=== PATIENT | female | born 1960 | race Caucasian/White ===

== ENCOUNTER 2017-03-27 10:01 | Emergency (ER) | payer SELFPAY ==
[2017-03-27 10:51] LABS: APPEARANCE HAZY (CLEAR); BILIRUBIN NEGATIVE (NEGATIVE); COLOR YELLOW (YELLOW); GLUCOSE NEGATIVE (NEGATIVE); KETONE NEGATIVE (NEGATIVE); NITRITE NEGATIVE (NEGATIVE); PH 5.5 (5.0-6.0); PROTEIN 1+ mg/dL (NEGATIVE); SPECIFIC GRAVITY 1.015 (1.005-1.020); UROBILINOGEN NORMAL (NORMAL)
[2017-03-27 11:16] LABS: BACTERIA MODERATE /hpf (NONE SEEN); EPITHELIAL CELLS 0-5 /hpf (0-5); RED CELLS - URINE 0-5 /hpf (0-5); SPERMATOZOA 0-5 /hpf (NONE SEEN)
== END 2017-03-27 12:17 | disposition home or self-care (01) ==
LOC: D.ER 10:01
PROVIDERS: Family Medicine
DX: N76.0 Acute vaginitis (principal); N39.0 Urinary tract infection, site not specified

== ENCOUNTER 2018-02-03 14:57 | Emergency (ER) | payer SELFPAY ==
[~2018-02-03] VITALS: Ht 160 cm; Wt 90.9 kg
[2018-02-03 15:20] VITALS: Ht 160 cm; Wt 90.9 kg
[2018-02-03 16:28] LABS: APPEARANCE HAZY (CLEAR); BILIRUBIN NEGATIVE (NEGATIVE); COLOR YELLOW (YELLOW); GLUCOSE NEGATIVE (NEGATIVE); KETONE NEGATIVE (NEGATIVE); NITRITE NEGATIVE (NEGATIVE); PROTEIN NEGATIVE (NEGATIVE); UROBILINOGEN NORMAL (NORMAL)
[2018-02-03 16:29] LABS: BACTERIA FEW /hpf (NONE SEEN); EPITHELIAL CELLS OCC /hpf (0-5); RED CELLS - URINE 0-5 /hpf (0-5)
[2018-02-03] MEDS ORDERED: PHENAZOPYRIDIN200 MG PO (17:46)
[2018-02-03] MEDS ORDERED: FLAGYL500 MG PO (17:46)
[2018-02-03] MEDS ORDERED: VIBRAMYCIN 100100 MG PO (17:46)
[2018-02-03 18:15] VITALS: BP 108/75
[2018-02-07 22:07] LABS: CHLAMYDIA TRACHOMATIS, NAA Negative (Negative)
== END 2018-02-03 18:16 | disposition home or self-care (01) ==
LOC: D.ER 14:57
PROVIDERS: Family Medicine
DX: N39.0 Urinary tract infection, site not specified (principal); N76.0 Acute vaginitis; B96.89 Other specified bacterial agents as the cause of diseases classified elsewhere